=== PATIENT | female | born 1930 | race Caucasian/White ===

== ENCOUNTER 2017-03-07 11:29 | Outpatient (CLI) | payer BC ==
[~2017-03-07 11:29] MED LIST: HYDR-1189 PO; LISI10TA5 PO
== END 2017-03-07 19:51 | disposition home or self-care (01) ==
LOC: SRD 11:29
PROVIDERS: ATTEND Internal Medicine
DX: M47.896 Other spondylosis, lumbar region (principal); I70.0 Atherosclerosis of aorta
CPT/HCPCS: 72110

== ENCOUNTER 2018-11-11 12:29 | Emergency (ER) | payer BC ==
[~2018-11-11] VITALS: Ht 162.6 cm; Wt 77.1 kg
[2018-11-11 12:41] VITALS: BP_SYST 156
[2018-11-11] MEDS ORDERED: NS 500 ML IV ONE (13:15)
[2018-11-11] MEDS ORDERED: ONDANSETRON HCL 4 MG/2 ML VIAL IVP ONE (13:15)
[2018-11-11] MEDS ORDERED: MORPHINE 4 MG/ML INJ. SYRINGE IVP ONE ×2 (13:15→15:00)
[2018-11-11 13:32] LABS: ANION GAP 8 (5-15); CALCIUM 9.7 mg/dL (8.4-11.0); CHLORIDE 108 mmol/L (98-107); CREATININE 0.93 mg/dL (0.55-1.30); GLUCOSE 138 mg/dL (70-99); POTASSIUM 3.3 mmol/L (3.5-5.1); SODIUM SERUM 141 mmol/L (136-145); UREA NITROGEN, BLOOD 20 mg/dL (8-21)
[2018-11-11 13:37] LABS: ALANINE AMINOTRANSFERASE 21 U/L (12-78); ALBUMIN 3.4 g/dL (3.4-4.8); ASPARTATE AMINOTRANSFERASE 26 U/L (10-37); TOTAL BILIRUBIN 0.4 mg/dL (0.0-1.0)
[2018-11-11 13:40] LABS: EOSINOPHILS # (AUTO) 0.1 K/uL (0.0-0.4); HEMATOCRIT 35.6 % (36-48); LYMPHOCYTES # (AUTO) 0.7 K/uL (1.0-5.5); LYMPHOCYTES % (AUTO) 9.7 % (20.5-51.5); MEAN CORPUSCULAR HEMOGLOBIN 33 pg (27-31); MEAN CORPUSCULAR HGB CONC 35 % (32-36); MEAN CORPUSCULAR VOLUME 94 fL (79.0-98.0); MONOCYTES # (AUTO) 0.4 K/uL (0.0-1.0); NEUTROPHILS # (AUTO) 6.2 K/uL (1.8-7.7)
[2018-11-11 13:42] LABS: HEMOGLOBIN 12.5 g/dL (12.0-16.0); PLATELET COUNT (AUTO) 238 K/uL (130-430); RED BLOOD CELL COUNT(AUTO) 3.81 MIL/uL (4.2-6.2); RED CELL DISTRIBUTION WIDTH 12.1 % (9.0-15.0); WHITE BLOOD COUNT (AUTO) 7.5 K/uL (4.8-10.8)
[2018-11-11 13:43] LABS: BASOPHILS # (AUTO) 0.1 K/uL (0.0-0.2); BASOPHILS % (AUTO) 0.7 % (0.0-2.0); NEUTROPHILS % (AUTO) 83.6 % (40.0-70.0)
[2018-11-11 13:47] LABS: PROTHROMBIN TIME 10.2 SECS (9.5-12.5)
[2018-11-11] MEDS ORDERED: POTASSIUM CHLORIDE 20 MEQ TAB.PRT.SR PO ONE (14:45)
[2018-11-11 14:53] LABS: BILIRUBIN,URINE NEGATIVE (NEGATIVE); BLOOD, URINE 1+ (NEGATIVE); CLARITY/URINE CLOUDY (CLEAR); COLOR,URINE YELLOW (YELLOW); GLUCOSE,URINE NEGATIVE (NEGATIVE); KETONES,URINE NEGATIVE (NEGATIVE); LEUKOCYTE ESTERASE ,URINE TRACE (NEGATIVE); NITRITE, URINE POSITIVE (NEGATIVE); PROTEIN URINE NEGATIVE (NEGATIVE); UROBILINOGEN,URINE 0.2 (0.2-1.0)
[2018-11-11 15:02] LABS: BACTERIA,URINE MANY /HPF (None Seen); MUCUS,URINE 1+ /LPF (None Seen); RBC,URINE 0-3 /HPF (0-3)
[2018-11-11] MEDS ORDERED: cefTRIAXone 1 GM IVPB PREMIX 50 ML IV ONE (15:15)
[2018-11-11 16:10] VITALS: BP_SYST 130
== END 2018-11-11 16:00 | disposition home or self-care (01) ==
LOC: SED 12:29
DX: N39.0 Urinary tract infection, site not specified (principal); I10 Essential (primary) hypertension
CPT/HCPCS: 36415; 74176; 80053; 81000; 83605; 85025; 85610; 85730; 87040; 87086; 96365; 96375; 96376; 99284; J0696; J2270; J2405; J7040

== ENCOUNTER 2019-03-09 07:17 | Outpatient (CLI) | payer BC | END 2019-03-09 21:16 | disposition home or self-care (01) | LOC: SRD 07:17 | PROVIDERS: ATTEND Internal Medicine | DX: M19.041 Primary osteoarthritis, right hand (principal) ==

== ENCOUNTER 2020-09-06 08:10 | Emergency (ER) | payer BC ==
[~2020-09-06] VITALS: Ht 167.6 cm; Wt 81.6 kg
--- NOTE | 2020-09-06 08:10 | NUR ---
[facility] from home. Patient to ER bed 06 to gown for evaluation. Side rails up. Harjit RN at bedside for triage
[2020-09-06 08:21] VITALS: BP_SYST 160
--- NOTE | 2020-09-06 08:21 | NUR ---
Pt came to ER after trip and fall over cat at home. Pt has approximately 1/2 inch L upper lip laceration rates pain 5/10 at this time. Resting in [facility], no distress, VSS, awaiting MD.
--- NOTE | 2020-09-06 08:23 | NUR ---
ER Dr. Myles at bedside examining patient.
--- NOTE | 2020-09-06 08:26 | NUR ---
Avel baker in ED - 09/06/20 at 0827 by SDEDDW TY Gibson at bedside examining patient.
[2020-09-06] MEDS ORDERED: LIDOCAINE 1% 10 MG/ML, 20 ML MDV SUBCUT ONE (08:30)
[2020-09-06 08:55] VITALS: BP_SYST 149
--- NOTE | 2020-09-06 08:55 | NUR ---
Patient given written and verbal discharge instructions and verbalizes understanding. ER MD discussed with patient the results and treatment provided. Patient in stable condition. ID arm band removed. Rx of Amoxicillin given. Patient educated on pain management and to follow up with PMD. Pain Scale 0/10. Opportunity for questions provided and answered. Medication side effect fact sheet provided.
== END 2020-09-06 08:55 | disposition home or self-care (01) ==
LOC: SED 08:10
DX: S01.511A Laceration without foreign body of lip, initial encounter (principal); S40.022A Contusion of left upper arm, initial encounter; I10 Essential (primary) hypertension; N28.9 Disorder of kidney and ureter, unspecified; W01.0XXA Fall on same level from slipping, tripping and stumbling without subsequent striking against object, initial encounter; Y93.89 Activity, other specified; Y92.090 Kitchen in other non-institutional residence as the place of occurrence of the external cause; Y99.8 Other external cause status
CPT/HCPCS: 12011; 99283; J2001